=== PATIENT | female | born 1935 | race Caucasian/White ===

== ENCOUNTER 2019-09-12 16:17 | Emergency (ER) | payer MEDICARE, MEDICAID ==
[~2019-09-12] VITALS: Ht 167.6 cm; Wt 59.9 kg
[2019-09-12] MEDS ORDERED: IV NORMAL SALINE 500ML 500 ML IV ONE (16:30)
--- NOTE | 2019-09-12 16:50 | PHYS DOC ---
Adult General Chief Complaint Chief Complaint: MECHANICAL FALL HPI HPI Patient is a 84-year-old female presenting with chief complaint of fall. She was outside looking at her next door neighbor's baby she got dizzy she fell back she landed on the back of her head no loss of consciousness denied chest pain or shortness of breath Review of Systems Review of Systems Constitutional: Denies fever or chills [] Eyes: Denies change in visual acuity, redness, or eye pain [] HENT: Denies nasal congestion or sore throat [] Respiratory: Musculoskeletal: Denies back pain or joint pain [] Integument: Denies rash or skin lesions [] Neurologic: Denies headache, focal weakness or sensory changes [] All other systems were reviewed and found to be within normal limits, except as documented in this note. Current Medications Current Medications Current Medications Medications (Trade) Dose Ordered Sig/Spike Start Time Stop Time Status Last Admin Dose Admin Sodium Chloride 500 ml @ 0 mls/hr 1X ONCE 09/12/19 16:30 09/12/19 16:31 UNV Physical Exam Physical Exam Constitutional: Well developed, well nourished, no acute distress, non-toxic appearance. [] HENT: Normocephalic, laceration punctate approx 1.5 cm noted to the occiput, bilateral external ears normal, oropharynx moist, no oral exudates, nose normal. [] Eyes: PERRLA, EOMI, conjunctiva normal, no discharge. [] Neck: Normal range of motion, no tenderness, supple, no stridor. [] no midline ttp noted. Cardiovascular:Heart rate regular rhythm, no murmur [] Lungs & Thorax: decreased bilateral breath sounds. Abdomen: Bowel sounds normal, soft, no tenderness, no masses, no pulsatile masses. [] skin: see above and below. Extremities:swelling ecchymosis and ttp noted to the right knee. Neurologic: Alert and oriented X 3, normal motor function, normal sensory function, no focal deficits noted. [] Psychologic: Affect normal, judgement normal, mood normal. [] Current Patient Data Vital Signs * Mild Temperature (Fahrenheit): * 97.9 degrees F (97.6-99.5) Patient Temperature * 97.9 degrees F (97.5-99.5) Temperature Source * Oral Blood Pressure Systolic * 197 mm Hg (100-140) H Blood Pressure Diastolic * 95 mm Hg (60-100) Blood Pressure Mean * 129 mm Hg Blood Pressure Location * Right Arm Blood Pressure Source * Automatic Cuff Pulse Rate * 96 beats per minute (60-90) H Respiratory Rate * 18 breaths per minute (12-24) Oxygen Delivery Method * Room Air Bedside Pulse Oximetry * 98 % Treatment Prior to Arrival * Yes Complaint of Pain * Yes EKG EKG Normal sinus rhythm rate of 64 no acute ischemic changes noted interpreted by me the time of encounter Radiology/Procedures Radiology/Procedures []N: None. FINDINGS: A frontal view of the chest is obtained. There is no infiltrate, pleural effusion or pneumothorax. The heart is normal in size. IMPRESSION: No acute pulmonary finding. Electronically signed by: Milady Valdes MD (09/12/2019 4:57 PM) [place] [id number] Impressions: 1. Moderate posterior right scalp hematoma and laceration. No underlying fracture or foreign body is seen. 2. No acute intracranial finding or evidence of acute cervical spine trauma. 3. Multilevel degenerative change involving the cervical spine, described in detail above. This results in stenosis at the aforementioned levels. 4. Decreased attenuation within the cerebral white matter due to chronic small vessel disease. This is superimposed on cerebral atrophy. Electronically signed by: Milady Valdes MD (09/12/2019 5:00 PM) [place] [id number] Course & Med Decision Making Course & Med Decision Making Pertinent Labs and Imaging studies reviewed. (See chart for details) []In summary this is an 84-year-old female with history of dementia and is presenting after mechanical fall sounds mostly mechanical in nature she was turning to look at a baby she did get a little dizzy we did a workup in the emergency room No evidence of any acute coronary syndrome urinalysis is suggestive of a UTI patient's vitals blood pressure was somewhat elevated however remainder of vitals were stable she ambulated with a steady gait to the emergency room bathroom She is with a sister who is very reliable and can watch over her closely at home I think it is reasonable to treat her as an outpatient starting Perception for Keflex we did give some potassium in the emergency room Procedure note: Laceration repair scalp 1.5 cm verbal consent obtained area was irrigated profusely no foreign body was seen lidocaine with epinephrine 3 mL was used for anesthesia close with 4-5 young patient did have very thin skin perf ect skin apart patient was challenging we did cover with a dressing however and patient remained stable throughout the procedure. Return precautions discussed patient voiced understanding of instructions as to the sister who will be watching over her very carefully Miguel Disclaimer Miguel Disclaimer This electronic medical record was generated, in whole or in part, using a voice recognition dictation system. Departure Departure: Impression: Primary Impression: Urinary tract infection Disposition: HOME, SELF-CARE Condition: STABLE Scripts Cephalexin (KEFLEX) 500 Mg Capsule 1 CAP PO TID for uti for 10 Days, #30 CAP 0 Refills Prov: TITO ROCHE MD 09/12/19 TITO ROCHE MD Sep 12, 2019 16:50
[2019-09-12 16:54] LABS: BASO # 0.1 x10^3/uL (0.0-0.2); BASO % 1 % (0-3); EOS # 0.3 x10^3/uL (0.0-0.7); EOS % 3 % (0-3); HEMATOCRIT 34.3 % (36.0-47.0); HEMOGLOBIN 11.2 g/dL (12.0-15.5); LYMPH # 2.7 x10^3/uL (1.0-4.8); LYMPH % 33 % (24-48); MEAN CORPUSCULAR HEMOGLOBIN 30 pg (25-35); MEAN CORPUSCULAR HGB CONC 33 g/dL (31-37); MEAN CORPUSCULAR VOLUME 91 fL (79-100); MONO # 0.8 x10^3/uL (0.0-1.1); MONO % 10 % (0-9); NEUT # 4.4 x10^3uL (1.8-7.7); NEUT % 54 % (31-73); PLATELET COUNT 294 x10^3/uL (140-400); RED BLOOD COUNT 3.76 x10^6/uL (3.50-5.40); RED CELL DISTRIBUTION WIDTH 13.2 % (11.5-14.5); WHITE BLOOD COUNT 8.2 x10^3/uL (4.0-11.0)
--- NOTE | 2019-09-12 17:00 | RAD ---
EXAM: Chest, single view. HISTORY: Weakness. Fall. COMPARISON: None. FINDINGS: A frontal view of the chest is obtained. There is no infiltrate, pleural effusion or pneumothorax. The heart is normal in size. IMPRESSION: No acute pulmonary finding. Electronically signed by: Milady Valdes MD (09/12/2019 4:57 PM) [place] [id number]
--- NOTE | 2019-09-12 17:03 | RAD ---
EXAM: Head and cervical spine CT without contrast. HISTORY: Fall. Dizziness. TECHNIQUE: Computed tomographic images of the head and cervical spine were obtained without contrast. *One or more of the following individualized dose reduction techniques were utilized for this examination: 1. Automated exposure control. 2. Adjustment of the mA and/or kV according to patient size. 3. Use of iterative reconstruction technique. COMPARISON: None. FINDINGS: Head: There is a moderate posterior right scalp soft tissue hematoma. There are foci of gas in this location due to a superimposed laceration. No foreign body is seen. There is no intracranial hemorrhage. There is no mass effect or midline shift. There is no hydrocephalus. There is cerebral atrophy. There are scattered areas of hypodensity within the cerebral white matter, likely due to chronic small vessel disease. There is evidence of lens surgery. The visualized paranasal sinuses are unremarkable. There is minimal fluid within the mastoid air cells. There is no fracture or suspicious calvarial lesion. Cervical spine: There is multilevel listhesis, degenerative in appearance. There is degenerative endplate remodeling with disc space narrowing and osteophytosis at multiple levels. There is advanced facet arthropathy at multiple levels. There is bone demineralization. No fracture is seen. No suspicious lytic or sclerotic osseous lesion is seen. The combination of degenerative changes results in mild right foraminal stenosis at C3-C4, mild right foraminal stenosis at C4-C5, and moderate bilateral foraminal stenosis at C5-C6. There are tiny cervical ribs. There is a small hypodense nodule or cyst within the right thyroid lobe. There is biapical pleural parenchymal scarring. IMPRESSION: 1. Moderate posterior right scalp hematoma and laceration. No underlying fracture or foreign body is seen. 2. No acute intracranial finding or evidence of acute cervical spine trauma. 3. Multilevel degenerative change involving the cervical spine, described in detail above. This results in stenosis at the aforementioned levels. 4. Decreased attenuation within the cerebral white matter due to chronic small vessel disease. This is superimposed on cerebral atrophy. Electronically signed by: Milady Valdes MD (09/12/2019 5:00 PM) [place] [id number]
[2019-09-12 17:08] LABS: ALBUMIN 3.5 g/dL (3.4-5.0); CALCIUM 9.8 mg/dL (8.5-10.1); CREATININE 1.2 mg/dL (0.6-1.0); GFR 42.7; POTASSIUM 3.2 mmol/L (3.5-5.1); TOTAL BILIRUBIN 0.5 mg/dL (0.2-1.0); TOTAL PROTEIN 7.1 g/dL (6.4-8.2)
--- NOTE | 2019-09-12 17:12 | RAD ---
Indication: Trauma. Right knee pain TECHNIQUE: 3 views of the right knee COMPARISON:None FINDINGS: No acute fracture or dislocation. Mild tricompartmental osteoarthritis. No joint effusion. IMPRESSION: As above. Electronically signed by: Sathya Gomez DO (09/12/2019 5:09 PM) [id number]
[2019-09-12 17:41] VITALS: BP 197/95
[2019-09-12] MEDS ORDERED: POTASSIUM CHLORIDE 20 MEQ TABLET.ER. PO ONE (17:45)
[2019-09-12 18:03] LABS: BILIRUBIN,URINE NEG (NEG); CLARITY,URINE CLOUDY; COLOR,URINE YELLOW; GLUCOSE,URINE NEG (NEG)
[2019-09-12 18:04] LABS: BACTERIA,URINE MANY /HPF (0-FEW); NITRITE,URINE POS (NEG); RBC,URINE OCC /HPF (0-2); SQUAMOUS EPITHELIAL CELL,UR OCC /LPF; UROBILINOGEN,URINE 0.2 mg/dL (0.2 mg/dL)
[2019-09-12] MEDS ORDERED: CEPH-264 PO (18:14)
[2019-09-12] MEDS ORDERED: CEPHALEXIN 250 MG CAPSULE PO ONE (18:15)
--- NOTE | 2019-09-15 12:19 | EKG ---
[address] [address] Test Date: 2019-09-12 Test Time: 16:31:48 Pat Name: NATHALIA MUÑIZ Department: Room: Gender: F Flight Teacher: : 1935 Requested By: TITO ROCHE Order Number: [id number] Reading MD: Robert Quinonez MD Measurements Intervals [place] Rate: 64 P: 56 IN: 188 QRS: 27 QRSD: 102 T: 53 QT: 404 QTc: 421 Interpretive Statements SINUS RHYTHM Electronically Signed On 09-16-2019 13:52:41 [employer] by Robert Quinonez MD
== END 2019-09-12 18:30 | disposition home or self-care (01) ==
LOC: ER 16:17
DX: S01.01XA Laceration without foreign body of scalp, initial encounter (principal); N39.0 Urinary tract infection, site not specified; R42 Dizziness and giddiness; F03.90 Unspecified dementia, unspecified severity, without behavioral disturbance, psychotic disturbance, mood disturbance, and anxiety; W18.39XA Other fall on same level, initial encounter; Y93.89 Activity, other specified; Y92.89 Other specified places as the place of occurrence of the external cause; Y99.8 Other external cause status
CPT/HCPCS: 12001; 36415; 70450; 71045; 72125; 73562; 80053; 81001; 84484; 85025; 87086; 93005; 96360; 96361; 99285; J7040

== ENCOUNTER 2020-03-10 08:58 | Emergency (ER) | payer MEDICAID, MEDICARE ==
[~2020-03-10] VITALS: Ht 167.6 cm; Wt 57.0 kg
[~2020-03-10 08:58] MED LIST: CEPH-264 PO
--- NOTE | 2020-03-10 09:58 | RAD ---
CHEST AP ONLY Clinical indications: Fall. Left femur fracture. Preoperative study. The patient is 84 years old. COMPARISON: September 12, 2019. Findings: No acute lung infiltrate or pleural effusion or pulmonary edema or lung mass or pneumothorax is seen. The heart size, pulmonary vasculature, mediastinum and both rupinder are unremarkable. No obvious rib deformity or shoulder deformity is seen. Impression: No acute radiographic abnormality is seen. Electronically signed by: Crispin Herring MD (03/10/2020 9:55 AM) [id number]
--- NOTE | 2020-03-10 10:01 | RAD ---
AP view of the pelvis and two-view study of the left hip and two-view study of the left femur INDICATIONS: Fall and pain. FINDINGS: There is a subcapital left femoral neck fracture. There is resultant varus deformity. The neck is displaced superiorly and laterally and anteriorly with respect to the head. No acute fracture of the rest of the left femur is seen. Degenerative osteoarthritis of the left knee is seen. No additional fracture or diastases of the pelvis is seen. No lytic process is evident. IMPRESSION: Acute posttraumatic subcapital left femoral neck fracture. Electronically signed by: Crispin Herring MD (03/10/2020 9:57 AM) [id number]
[2020-03-10] MEDS ORDERED: MORPHINE SULFATE 4 MG/ML DISP.SYRIN. ONE (10:31)
[2020-03-10] MEDS ORDERED: MORPHINE SULFATE 4 MG/ML DISP.SYRIN. IV ONE ×2 (10:45→12:15)
[2020-03-10] MEDS ORDERED: MEMA10TA PO (11:50)
[2020-03-10] MEDS ORDERED: DONE10TA7 PO (11:50)
[2020-03-10] MEDS ORDERED: OXYB5TAB10 PO (11:50)
[2020-03-10] MEDS ORDERED: OMEP20CA16 PO (11:50)
[2020-03-10] MEDS ORDERED: ALPR0.5T6 PO (11:50)
[2020-03-10] MEDS ORDERED: MIRT15TA3 PO (11:50)
[2020-03-10] MEDS ORDERED: HYDR-2145 PO (11:50)
[2020-03-10] MEDS ORDERED: TRAM50TA PO (11:50)
[2020-03-10 12:11] VITALS: BP 168/72
--- NOTE | 2020-03-10 16:44 | PHYS DOC ---
Past History Past Medical History: COPD, Hypertension Past Surgical History: Hysterectomy Alcohol Use: None Drug Use: None Adult General Chief Complaint Chief Complaint: HIP PAIN HPI HPI Patient is a 84 year old female who presents with left hip pain. Patient was turning and slipped and fell landing on her hip. She denies any loss of consciousness, syncope, chest pain, shortness of breath. She denies any other injuries. She is able to move her foot. She denies any numbness or tingling. She has never had a hip replacement or fracture previously. Review of Systems Review of Systems General: Denies fever, chills, sweats, fatigue Eyes: Denies drainage, blurred vision HENT: Denies rhinorrhea, sore throat Respiratory: Denies cough, shortness of breath, wheezing Cardiac: Denies edema, palpitations, chest pain GI: Denies abdominal pain, N/V MSK: Denies back pain, neck pain Skin: Denies rash, jaundice Neuro: Denies headache, dizziness Psychiatric: Denies SI/HI Current Medications Current Medications Current Medications Medications (Trade) Dose Ordered Sig/Spike Start Time Stop Time Status Last Admin Dose Admin Morphine Sulfate (Morphine 4mg Syringe) 4 mg 1X ONCE 03/10/20 12:15 03/10/20 12:20 DC 03/10/20 12:40 4 MG Allergies Allergies Allergies Coded Allergies Type Severity Reaction Last Updated Verified No Known Drug Allergies 09/12/19 No Physical Exam Physical Exam Constitutional: Well developed, well nourished, Cooperative, NAD, non-toxic appearing HEENT: Normocephalic, atraumatic, oropharynx moist, EOMI, PERRL, no drainage from eyes, normal conjunctiva Neck: Supple, normal range of motion, no stridor Cardiovascular: RRR, 2+ radial pulses bilaterally, no edema Respiratory: CTA bilaterally, no respiratory distress, no wheezing/crackles Abdomen: Soft, nontender, nondistended, no masses Skin: Warm, dry, intact Extremities: No obvious deformities, left hip tenderness Neurologic: Alert and Oriented x3, motor and sensory function grossly normal, no focal deficits Psychologic: Normal affect, normal judgment, normal mood. No SI/HI Current Patient Data Vital Signs Vital Signs Date Time Temp Pulse Resp B/P (MAP) Pulse Ox O2 Delivery O2 Flow Rate FiO2 03/10/20 12:40 Room Air 03/10/20 12:11 62 18 168/72 (104) 100 2.0 03/10/20 09:06 98.2 EKG EKG [] Radiology/Procedures Radiology/Procedures [] Course & Med Decision Making Course & Med Decision Making Pertinent Labs and Imaging studies reviewed. (See chart for details) Patient is an 84-year-old female presents to the emergency room complaining of left hip pain. X-ray was ordered and patient has a femoral neck fracture. She did not hit her head or lose consciousness. She does not need syncope work-up at this time. Patient is requesting to go to [facility] for orthopedic surgery. Patient will be transferred to [facility]. Dragon Disclaimer Dragon Disclaimer This electronic medical record was generated, in whole or in part, using a voice recognition dictation system. Departure Departure: Impression: Primary Impression: Hip fracture, left Disposition: 05 TRANSFER OTHER Condition: STABLE Referrals: FELIZ FOFANA MD (PCP) MARTA GUTIÉRREZ MD Mar 10, 2020 16:44
== END 2020-03-10 12:45 | disposition short-term general hospital (02) ==
LOC: ER 08:58
DX: S72.012A Unspecified intracapsular fracture of left femur, initial encounter for closed fracture (principal); J44.9 Chronic obstructive pulmonary disease, unspecified; I10 Essential (primary) hypertension; W01.0XXA Fall on same level from slipping, tripping and stumbling without subsequent striking against object, initial encounter; Y93.89 Activity, other specified; Y92.89 Other specified places as the place of occurrence of the external cause; Y99.8 Other external cause status
CPT/HCPCS: 71045; 73502; 73552; 96374; 96376; 99285; J2270

== ENCOUNTER 2020-04-03 20:36 | Emergency (ER) | payer MEDICARE ==
[~2020-04-03] VITALS: Ht 167.6 cm; Wt 70.0 kg
[~2020-04-03 20:36] MED LIST changes: +ALPR0.5T6 PO; +DONE10TA7 PO; +HYDR-2145 PO; +MEMA10TA PO; +MIRT15TA3 PO; +OMEP20CA16 PO; +OXYB5TAB10 PO; +TRAM50TA PO
[2020-04-03] MEDS ORDERED: IV NORMAL SALINE 1,000ML 1,000 ML IV ONE (21:00)
[2020-04-03] MEDS ORDERED: SODIUM BICARB ADULT 8.4% 50 MEQ/50 ML DISP.SYRIN. IV ONE ×2 (21:00)
--- NOTE | 2020-04-03 21:02 | RAD ---
Exam: Chest one view INDICATION: CODE BLUE TECHNIQUE: Frontal view of the chest Comparisons: 03/10/2020 FINDINGS: Endotracheal tube with tip approximately 3 cm above the eileen. The cardiomediastinal silhouette and pulmonary vessels are within normal limits. The lung and pleural spaces are clear. IMPRESSION: Lines and tubes described above. Electronically signed by: Nataly Burnham MD (04/03/2020 8:59 PM) [id number]
[2020-04-03 21:09] LABS: BASO # 0.1 x10^3/uL (0.0-0.2); BASO % 0 % (0-3); EOS # 0.1 x10^3/uL (0.0-0.7); EOS % 1 % (0-3); LYMPH % 29 % (24-48); MEAN CORPUSCULAR HEMOGLOBIN 28 pg (25-35); MEAN CORPUSCULAR HGB CONC 31 g/dL (31-37); MEAN CORPUSCULAR VOLUME 91 fL (79-100); MONO # 0.1 x10^3/uL (0.0-1.1); MONO % 1 % (0-9); NEUT # 9.5 x10^3uL (1.8-7.7); NEUT % 69 % (31-73); PLATELET COUNT 255 x10^3/uL (140-400); RED BLOOD COUNT 2.72 x10^6/uL (3.50-5.40); RED CELL DISTRIBUTION WIDTH 13.7 % (11.5-14.5); WHITE BLOOD COUNT 13.8 x10^3/uL (4.0-11.0)
[2020-04-03 21:10] LABS: HEMATOCRIT 24.4 % (36.0-47.0); HEMOGLOBIN 7.6 g/dL (12.0-15.5)
[2020-04-03] MEDS ORDERED: NOREPINEPHRINE BITARTRATE 4 MG/4 ML VIAL. IV ONE (21:19)
[2020-04-03] MEDS ORDERED: IV NORMAL SALINE 250ML 250 ML ONE (21:20)
[2020-04-03 21:27] LABS: ALBUMIN 1.8 g/dL (3.4-5.0); ALBUMIN/GLOBULIN RATIO 0.6 (1.0-1.7); CALCIUM 8.8 mg/dL (8.5-10.1); CREATININE 1.8 mg/dL (0.6-1.0); GFR 26.7; TOTAL PROTEIN 4.9 g/dL (6.4-8.2)
[2020-04-03] MEDS ORDERED: CALCIUM CHLORIDE 1,000 MG/10 ML DISP.SYRIN IV ONE (21:30)
[2020-04-03] MEDS ORDERED: DEXTROSE 50% 25 GM / 50ML DISP.SYRIN. IV ONE ×4 (21:36→22:00)
[2020-04-03 21:43] VITALS: BP 84/38
[2020-04-03] MEDS ORDERED: NOREPINEPHRINE BITARTRATE 8 MG in IV DEXTROSE 5% 250 ML IV PRN (21:45)
[2020-04-03 21:59] LABS: % BANDS 6 % (0-9); % EOS 1 % (0-5); % LYMPHS 53 % (24-48); % MONOS 4 % (0-10); % SEGS 36 % (35-66); HYPOCHROMIA PRESENT; NUCLEATED RBC 0; PLT ESTIMATE ADEQUATE (ADEQUATE)
[2020-04-03] MEDS ORDERED: EPINEPHrine SYRINGE 1 MG/10 ML SYRINGE ONE (22:00)
[2020-04-03 22:05] LABS: BILIRUBIN,URINE NEG (NEG); CLARITY,URINE CLOUDY; COLOR,URINE AMBER; GLUCOSE,URINE NEG (NEG); NITRITE,URINE NEG (NEG)
[2020-04-03 22:06] LABS: BACTERIA,URINE MANY /HPF (0-FEW); RBC,URINE >40 /HPF (0-2); SQUAMOUS EPITHELIAL CELL,UR FEW /LPF
[2020-04-03 22:06] LABS: BGAS PH 7.26 (7.35-7.45)
--- NOTE | 2020-04-03 22:23 | PHYS DOC ---
Past History Past Medical History: COPD, Hypertension Past Surgical History: Hysterectomy Alcohol Use: None Drug Use: None General Adult EDM: Chief Complaint: CPR/FULL ARREST HPI: HPI: 84-year-old female presents via EMS as a CODE BLUE. The patient was found down in her rehab room at a care facility. CPR was started on scene. EMS continued CPR they shocked the patient a total of 3 times and gave her 3 rounds of epinephrine. After 2 rounds of epinephrine and 3 shocks, they had return of spontaneous circulation. On arrival to our parking lot, they reported that lost pulse and started compressions again. The patient was at the rehab facility because of a recent hip surgery. She is on heparin for DVT prophylaxis. Her history was reported to have some mild dementia, hypertension, COPD. The patient was unresponsive throughout her course in the ED. She was reported to be a full code. Review of Systems: Review of Systems: Unable to perform due to being unresponsive Heart Score: Risk Factors: Risk Factors: DM, Current or recent (<one month) smoker, HTN, HLP, family history of CAD, obesity. Risk Scores: Score 0 - 3: 2.5% MACE over next 6 weeks - Discharge Home Score 4 - 6: 20.3% MACE over next 6 weeks - Admit for Clinical Observation Score 7 - 10: 72.7% MACE over next 6 weeks - Early Invasive Strategies Current Medications: Current Meds: Current Medications Medications (Trade) Dose Ordered Sig/Spike Start Time Stop Time Status Last Admin Dose Admin Calcium Chloride 1,000 mg 1X ONCE 04/03/20 21:30 04/03/20 21:31 DC Dextrose (Dextrose 50%-Water Syringe) 25 gm 1X ONCE 04/03/20 21:45 04/03/20 21:46 UNV Norepinephrine Bitartrate (Levophed) 4 mg STK-MED ONCE 04/03/20 21:19 04/03/20 21:19 DC Norepinephrine Bitartrate 8 mg/ Dextrose 258 ml @ 13.545 mls/ hr CONT PRN 04/03/20 21:45 UNV Sodium Bicarbonate (Sodium Bicarb Adult 8.4% Syr) 50 meq 1X ONCE 04/03/20 21:00 04/03/20 21:06 DC Sodium Chloride 250 ml @ As Directed STK-MED ONCE 04/03/20 21:20 6/27/20 21:20 DC Allergies: Allergies: Allergies Coded Allergies Type Severity Reaction Last Updated Verified No Known Drug Allergies 09/12/19 No Physical Exam: PE: Constitutional: Well developed, well nourished, severe acute distress. [] HENT: Normocephalic, atraumatic, bilateral external ears normal, oropharynx moist, no oral exudates, nose normal. [] Eyes: Open, fixed, dilated, conjunctiva normal, no discharge. [] Neck: Unable to perform. [] Cardiovascular: Heart irregular rhythm [] Lungs & Thorax: Intubated [] Abdomen: soft, no masses, no pulsatile masses. [] Skin: Warm, dry, no erythema, no rash. [] Back: Unable to determine. [] Extremities: No cyanosis, no clubbing. [] Neurologic: Pupils fixed and dilated. [] Psychologic: Unable to perform [] Current Patient Data: Labs: Laboratory Tests Test 04/03/20 20:45 04/03/20 20:58 04/03/20 21:05 04/03/20 21:44 White Blood Count 13.8 x10^3/uL (4.0-11.0) H Red Blood Count 2.72 x10^6/uL (3.50-5.40) L Hemoglobin 7.6 g/dL (12.0-15.5) L Hematocrit 24.4 % (36.0-47.0) L Mean Corpuscular Volume 91 fL (79-100) Mean Corpuscular Hemoglobin 28 pg (25-35) Mean Corpuscular Hemoglobin Concent 31 g/dL (31-37) Red Cell Distribution Width 13.7 % (11.5-14.5) Platelet Count 255 x10^3/uL (140-400) Neutrophils (%) (Auto) 69 % (31-73) Lymphocytes (%) (Auto) 29 % (24-48) Monocytes (%) (Auto) 1 % (0-9) Eosinophils (%) (Auto) 1 % (0-3) Basophils (%) (Auto) 0 % (0-3) Neutrophils # (Auto) 9.5 x10^3uL (1.8-7.7) H Lymphocytes # (Auto) 4.0 x10^3/uL (1.0-4.8) Monocytes # (Auto) 0.1 x10^3/uL (0.0-1.1) Eosinophils # (Auto) 0.1 x10^3/uL (0.0-0.7) Basophils # (Auto) 0.1 x10^3/uL (0.0-0.2) Segmented Neutrophils % 36 % (35-66) Band Neutrophils % 6 % (0-9) Lymphocytes % 53 % (24-48) H Monocytes % 4 % (0-10) Eosinophils % 1 % (0-5) Nucleated Red Blood Cells 0 Platelet Estimate Adequate (ADEQUATE) Hypochromasia Present Sodium Level 147 mmol/L (136-145) H Potassium Level 6.0 mmol/L (3.5-5.1) H Chloride Level 101 mmol/L (98-107) Carbon Dioxide Level 28 mmol/L (21-32) Anion Gap 18 (6-14) H Blood Urea Nitrogen 66 mg/dL (7-20) H Creatinine 1.8 mg/dL (0.6-1.0) H Estimated GFR (Cockcroft-Gault) 26.7 BUN/Creatinine Ratio 37 (6-20) H Glucose Level 17 mg/dL (70-99) *L Lactic Acid Level 22.3 mmol/L (0.4-2.0) *H Calcium Level 8.8 mg/dL (8.5-10.1) Total Bilirubin 1.0 mg/dL (0.2-1.0) Aspartate Amino Transferase (AST) 4180 U/L (15-37) H Alanine Aminotransferase (ALT) 2298 U/L (14-59) H Alkaline Phosphatase 412 U/L (46-116) H Troponin I Quantitative 0.021 ng/mL (0-0.055) Total Protein 4.9 g/dL (6.4-8.2) L Albumin 1.8 g/dL (3.4-5.0) L Albumin/Globulin Ratio 0.6 (1.0-1.7) L Blood pH 7.26 (7.35-7.45) L Blood Gas PCO2 32 mmHg (35-45) L Blood Gas PO2 232 mmHg (71-100) H Blood Gas HCO3 14 mmol/L (22-26) L Arterial Bld O2 Saturation (Calc) 100 % (92-99) H FiO2 100 % Urine Collection Type Unknown Urine Color [place] Urine Clarity Cloudy Urine pH 7.0 Urine Specific [place] 1.020 Urine Protein 100 mg/dl (NEG-TRACE) Urine Glucose (UA) Neg mg/dL (NEG) Urine Ketones (Stick) Trace mg/dL (NEG) Urine Blood Large (NEG) Urine Nitrite Neg (NEG) Urine Bilirubin Neg (NEG) Urine Urobilinogen Dipstick 2.0 mg/dL (0.2 mg/dL) Urine Leukocyte Esterase Large (NEG) Urine RBC >40 /HPF (0-2) Urine WBC 11-20 /HPF (0-4) Urine Squamous Epithelial Cells Few /LPF Urine Bacteria Many /HPF (0-FEW) Glucose (Fingerstick) 306 mg/dL (70-99) H Vital Signs: Vital Signs Date Time Temp Pulse Resp B/P (MAP) Pulse Ox O2 Delivery O2 Flow Rate FiO2 04/03/20 20:36 98.1 120 18 86 15.0 EKG: EKG: Sinus rhythm, rate 76, normal axis, peaked T waves, [address] depression in the 3 V4. [] Radiology/Procedures: Radiology/Procedures: [] Impressions: Exam: Chest one view INDICATION: CODE BLUE TECHNIQUE: Frontal view of the chest Comparisons: 03/10/2020 FINDINGS: Endotracheal tube with tip approximately 3 cm above the eileen. The cardiomediastinal silhouette and pulmonary vessels are within normal limits. The lung and pleural spaces are clear. IMPRESSION: Lines and tubes described above. Electronically signed by: Nataly Ley MD (04/03/2020 8:59 PM) [id number] DICTATED AND SIGNED BY: NATALY LEY MD DATE: 04/03/202058 CC: GORDO GODOY DO; FELIZ FOFANA MD ~ Course & Med Decision Making: Course & Med Decision Making Pertinent Labs and Imaging studies reviewed. (See chart for details) On arrival, the patient was receiving compression by Brigido device. She was transferred to the hospital bed. Once hooked to the monitors, a pulse check was performed. We did have a pulse. The rhythm was irregular and hard to define. At 1 point it looked like ventricular fibrillation and we prepared to shock. Just prior to shocking, the patient's rhythm changed back to a more regular sinus. The patient was given a total of 3 A of bicarb. She was already intubated on arrival. Chest x-ray showed tube in good place. We gave 1 epinephrine on arrival. The patient's blood pressure was erratic and low. We started her on Levophed. She was increased to 25 mcg/kg/min. Her ABG had a pH of 7.258. CO2 31.9. O2 232. Her lactic acid is 22.3. Patient was given 3 L of normal saline. At no time was the patient responsive. She was not breathing on her own. Pupils were fixed and dilated. She was not bucking the vent. She had other abnormal labs. See chart for more details. The patient's glucose was 17. She was given 2 A of dextrose. I spoke with Dr. Spicer at [facility] and he accepted the patient for transfer. She transferred by emergent EMS. 61 minutes of critical care time was spent on this patient exclusive of other billable procedures. [] Dragon Disclaimer: Dragon Disclaimer: This electronic medical record was generated, in whole or in part, using a voice recognition dictation system. Departure Departure: Impression: Primary Impression: Unresponsive Additional Impressions: Signs of return of spontaneous circulation Lactic acidosis Hypoglycemia Disposition: 01 HOME/RESIDENCE PRIOR TO ADM Condition: STABLE Referrals: FELIZ FOFANA MD (PCP) Justification of Admission: Justification of Admission: Justification of Admission Dx: Yes Respiratory Failure: Mechanical Ventilation GORDO GODOY DO Apr 03, 2020 22:22
--- NOTE | 2020-04-03 23:13 | EKG ---
[address] [address] Test Date: 2020-04-03 Test Time: 21:10:27 Pat Name: NATHALIA MUÑIZ Department: Room: Gender: F Land Measurer: : 1935 Requested By: GORDO GODOY Order Number: [id number] Reading MD: Measurements Intervals [place] Rate: 76 P: -9 ME: 220 QRS: 43 QRSD: 92 T: 68 QT: 400 QTc: 455 Interpretive Statements SINUS RHYTHM PROLONGED ME INTERVAL T ABNORMALITY IN HIGH LATERAL LEADS ABNORMAL ECG RI6.02 No previous ECG available for comparison
[2020-04-04] MEDS ORDERED: IV NORMAL SALINE 1,000ML 1,000 ML IV ONE ×2 (02:00)
[2020-04-04] MEDS ORDERED: SODIUM BICARB ADULT 8.4% 50 MEQ/50 ML DISP.SYRIN. IV ONE (02:00)
== END 2020-04-03 22:00 | disposition home or self-care (01) ==
LOC: ER 20:40
DX: I46.9 Cardiac arrest, cause unspecified (principal); E87.2 Acidosis; E16.2 Hypoglycemia, unspecified; J44.9 Chronic obstructive pulmonary disease, unspecified; I10 Essential (primary) hypertension; Z90.710 Acquired absence of both cervix and uterus; Z79.899 Other long term (current) drug therapy
CPT/HCPCS: 31500; 36415; 36600; 51702; 71045; 80053; 81001; 82803; 82947; 83605; 84484; 85007; 85025; 87086; 92950; 93005; 94002; 96365; 96375; 96376; 99291; J0171; J7030